=== PATIENT | female | born 1955 | race Caucasian/White ===

== ENCOUNTER 2017-09-16 19:58 | Inpatient (IN) | payer OTHER, MEDICARE ==
[~2017-09-16] VITALS: Ht 180.3 cm; Wt 109.9 kg
[2017-09-16] MEDS ORDERED: ipratropium 0.5 MG/2.5ML nebule IH ONE (20:15)
[2017-09-16] MEDS ORDERED: methylPREDNISolone sod succ 125mg/2ml vial IV ONE (20:15)
[2017-09-16] MEDS ORDERED: magnesium 2GM in 50ml NS 50 ML IV ONE (20:15)
[2017-09-16] MEDS ORDERED: albuterol 2.5 MG/3 ML nebule CONTNEB PRN (20:15)
[2017-09-16 20:57] LABS: BASOPHILS % (AUTO) 0.3 % (0-1); EOSINOPHILS # (AUTO) 0.2 X10'3 (0-0.9); EOSINOPHILS % (AUTO) 2.2 % (0-6); HEMATOCRIT 45.4 % (35.0-45.0); HEMOGLOBIN 15.8 g/dl (12.0-16.0); LYMPHOCYTES # (AUTO) 1.1 X10'3 (1.1-4.8); LYMPHOCYTES % (AUTO) 15.1 % (21-51); MEAN CORPUSCULAR HEMOGLOBIN 33.6 PG (27.0-31.0); MEAN CORPUSCULAR HGB CONC 34.8 % (33.0-36.5); MEAN CORPUSCULAR VOLUME 96.7 FL (78-98); MEAN PLATELET VOLUME 8.1 FL (7.4-10.4); MONOCYTES # (AUTO) 0.7 X10'3 (0-0.9); MONOCYTES % (AUTO) 9.9 % (2-12); NEUTROPHILS # (AUTO) 5.2 X10'3 (1.8-7.7); NEUTROPHILS % (AUTO) 72.5 % (42-75); PLATELET COUNT 158 X10'3 (140-440); RED BLOOD COUNT 4.69 X10'6 (4.20-5.60); RED CELL DISTRIBUTION WIDTH 14.4 % (11.5-14.5); WHITE BLOOD COUNT 7.2 X10'3 (4.5-11.0)
[2017-09-16 21:10] LABS: PARTIAL THROMBOPLASTIN TIME 26 SECONDS (22-32); PROTHROMBIN TIME 10.1 SECONDS (9.0-12.0)
[2017-09-16 21:12] LABS: ALANINE AMINOTRANSFERASE 20 U/L (12-78); ALBUMIN 3.8 G/DL (3.4-5.0); ALBUMIN/GLOBULIN RATIO 0.9 (1.1-1.5); ALKALINE PHOSPHATASE 56 IU/L (46-116); ANION GAP 9 (8-16); ASPARTATE AMINO TRANSFERASE 12 U/L (10-37); BILIRUBIN,TOTAL 0.5 MG/DL (0.1-1.0); BLOOD UREA NITROGEN 9 MG/DL (7-18); BUN/CREATININE RATIO 13.2 (6.6-38.0); CALCIUM 9.3 MG/DL (8.5-10.1); CHLORIDE 104 MMOL/L (99-107); CREATININE 0.68 MG/DL (0.40-0.90); GLUCOSE 120 MG/DL (70-104); POTASSIUM 3.8 MMOL/L (3.5-5.1); SODIUM 140 MMOL/L (135-145); TOTAL CARBON DIOXIDE 27.5 MMOL/L (24-32); TOTAL PROTEIN 8.2 G/DL (6.4-8.2); eGFR 87 ML/MIN
[2017-09-16] MEDS ORDERED: albuterol 2.5 MG/3 ML nebule NEB ONE (23:05)
[2017-09-17] MEDS ORDERED: mag hydrox/Alum hydrox/simeth 30ml oral suspension PO PRN (01:15)
[2017-09-17] MEDS ORDERED: ondansetron/PF 4mg/2ml inj IV PRN (01:15)
[2017-09-17] MEDS ORDERED: magnesium hydroxide 30ml (MOM) UD suspension PO PRN (01:15)
[2017-09-17] MEDS ORDERED: acetaminophen 325mg tablet PO PRN (01:15)
[2017-09-17] MEDS ORDERED: albuterol 2.5 MG/3 ML nebule NEB PRN (01:20)
[2017-09-17] MEDS ORDERED: HYDR-565 PO (01:36)
[2017-09-17] MEDS ORDERED: AMLO-94 PO (01:36)
[2017-09-17] MEDS ORDERED: GABA-532 PO ×2 (01:36)
[2017-09-17] MEDS ORDERED: TEMA30CA PO (07:05)
[2017-09-17] MEDS ORDERED: SERT100T PO (07:07)
[2017-09-17 07:45] VITALS: BP 140/77
[2017-09-17] MEDS ORDERED: methylPREDNISolone sod succ/PF 40mg inj. IV SCH (08:00)
[2017-09-17] MEDS: pantoprazole 40 MG vial IV SCH (08:21)
[2017-09-17] MEDS: HYDROcodone/acetaminophen 10/325mg tab PO PRN ×2 (08:23→20:29)
[2017-09-17] MEDS: heparin, porcine 5000 units/ml vial SQ SCH ×2 (08:23→20:21)
[2017-09-17] MEDS ORDERED: LORazepam 2 mg/ml vial IV PRN (10:40)
[2017-09-17] MEDS: LORazepam 1 MG tablet PO PRN ×2 (14:42→20:20)
[2017-09-17] MEDS: ipratropium/albuterol 3ml nebule NEB SCH ×3 (14:59→23:30)
[2017-09-17 19:00] VITALS: BP 155/66
[2017-09-17] MEDS: methylPREDNISolone sod succ/PF 40mg inj. IV SCH (20:22)
[2017-09-18] VITALS: BP 152/79
[2017-09-18] MEDS: methylPREDNISolone sod succ/PF 40mg inj. IV SCH ×4 (03:54→20:47)
[2017-09-18] MEDS: ipratropium/albuterol 3ml nebule NEB PRN (03:56)
[2017-09-18 05:11] LABS: BASOPHILS % (AUTO) 0.2 % (0-1); EOSINOPHILS % (AUTO) 0.5 % (0-6); HEMATOCRIT 45.5 % (35.0-45.0); HEMOGLOBIN 15.9 g/dl (12.0-16.0); LYMPHOCYTES # (AUTO) 0.8 X10'3 (1.1-4.8); LYMPHOCYTES % (AUTO) 9.6 % (21-51); MEAN CORPUSCULAR HEMOGLOBIN 33.7 PG (27.0-31.0); MEAN CORPUSCULAR HGB CONC 34.8 % (33.0-36.5); MEAN CORPUSCULAR VOLUME 96.7 FL (78-98); MEAN PLATELET VOLUME 8.3 FL (7.4-10.4); MONOCYTES # (AUTO) 0.4 X10'3 (0-0.9); MONOCYTES % (AUTO) 4.4 % (2-12); NEUTROPHILS # (AUTO) 7.3 X10'3 (1.8-7.7); NEUTROPHILS % (AUTO) 85.3 % (42-75); PLATELET COUNT 156 X10'3 (140-440); RED BLOOD COUNT 4.71 X10'6 (4.20-5.60); RED CELL DISTRIBUTION WIDTH 14.1 % (11.5-14.5); WHITE BLOOD COUNT 8.5 X10'3 (4.5-11.0)
[2017-09-18 05:27] LABS: ALANINE AMINOTRANSFERASE 21 U/L (12-78); ALBUMIN 3.7 G/DL (3.4-5.0); ALBUMIN/GLOBULIN RATIO 0.8 (1.1-1.5); ALKALINE PHOSPHATASE 54 IU/L (46-116); ANION GAP 10 (8-16); ASPARTATE AMINO TRANSFERASE 14 U/L (10-37); BILIRUBIN,TOTAL 0.4 MG/DL (0.1-1.0); BLOOD UREA NITROGEN 13 MG/DL (7-18); CALCIUM 9.1 MG/DL (8.5-10.1); CHLORIDE 104 MMOL/L (99-107); CREATININE 0.65 MG/DL (0.40-0.90); GLUCOSE 146 MG/DL (70-104); POTASSIUM 4.3 MMOL/L (3.5-5.1); SODIUM 143 MMOL/L (135-145); TOTAL CARBON DIOXIDE 28.9 MMOL/L (24-32); TOTAL PROTEIN 8.2 G/DL (6.4-8.2); eGFR > 90 ML/MIN
[2017-09-18 07:46] VITALS: BP 142/63
[2017-09-18] MEDS: HYDROcodone/acetaminophen 10/325mg tab PO PRN ×4 (08:12→21:38)
[2017-09-18] MEDS: LORazepam 1 MG tablet PO PRN ×3 (08:12→21:38)
[2017-09-18] MEDS: heparin, porcine 5000 units/ml vial SQ SCH ×2 (08:12→20:46)
[2017-09-18] MEDS: pantoprazole 40 MG vial IV SCH (08:13)
[2017-09-18] MEDS: ipratropium/albuterol 3ml nebule NEB SCH ×4 (08:23→20:19)
[2017-09-18 11:00] VITALS: BP 150/61
[2017-09-18 19:30] VITALS: BP 158/64
[2017-09-18] MEDS: cefTRIAXone 1g/NS 100ml IVPB 100 ML IV SCH (20:47)
[2017-09-18] MEDS: levoFLOXACIN-Levaquin 500mg/D5 100 ML IV SCH (21:38)
[2017-09-18 23:45] VITALS: BP 144/55
[2017-09-19] MEDS: ipratropium/albuterol 3ml nebule NEB SCH ×4 (00:10→21:01)
[2017-09-19] MEDS: methylPREDNISolone sod succ/PF 40mg inj. IV SCH ×3 (02:05→15:32)
[2017-09-19] MEDS: HYDROcodone/acetaminophen 10/325mg tab PO PRN ×5 (02:05→21:44)
[2017-09-19] MEDS: ipratropium/albuterol 3ml nebule NEB PRN (04:13)
[2017-09-19] MEDS: LORazepam 1 MG tablet PO PRN ×3 (04:28→19:04)
[2017-09-19 05:17] LABS: BASOPHILS % (AUTO) 0 % (0-1); EOSINOPHILS # (AUTO) 0.1 X10'3 (0-0.9); HEMATOCRIT 44.7 % (35.0-45.0); HEMOGLOBIN 15.7 g/dl (12.0-16.0); LYMPHOCYTES # (AUTO) 0.7 X10'3 (1.1-4.8); LYMPHOCYTES % (AUTO) 8.1 % (21-51); MEAN CORPUSCULAR VOLUME 97.1 FL (78-98); MEAN PLATELET VOLUME 8.2 FL (7.4-10.4); MONOCYTES # (AUTO) 0.4 X10'3 (0-0.9); MONOCYTES % (AUTO) 4.1 % (2-12); NEUTROPHILS % (AUTO) 86.8 % (42-75); PLATELET COUNT 172 X10'3 (140-440); RED CELL DISTRIBUTION WIDTH 14.6 % (11.5-14.5); WHITE BLOOD COUNT 9.2 X10'3 (4.5-11.0)
[2017-09-19 05:44] LABS: ALANINE AMINOTRANSFERASE 19 U/L (12-78); ALBUMIN 3.5 G/DL (3.4-5.0); ALBUMIN/GLOBULIN RATIO 0.8 (1.1-1.5); ALKALINE PHOSPHATASE 48 IU/L (46-116); ANION GAP 12 (8-16); ASPARTATE AMINO TRANSFERASE 15 U/L (10-37); BILIRUBIN,TOTAL 0.2 MG/DL (0.1-1.0); BLOOD UREA NITROGEN 16 MG/DL (7-18); BUN/CREATININE RATIO 26.2 (6.6-38.0); CALCIUM 9.1 MG/DL (8.5-10.1); CHLORIDE 104 MMOL/L (99-107); CREATININE 0.61 MG/DL (0.40-0.90); GLUCOSE 131 MG/DL (70-104); POTASSIUM 4.7 MMOL/L (3.5-5.1); SODIUM 142 MMOL/L (135-145); TOTAL CARBON DIOXIDE 26.4 MMOL/L (24-32); TOTAL PROTEIN 7.7 G/DL (6.4-8.2); eGFR > 90 ML/MIN
[2017-09-19 07:00] VITALS: BP 149/69
[2017-09-19] MEDS: pantoprazole 40 MG vial IV SCH (08:32)
[2017-09-19] MEDS: cefTRIAXone 1g/NS 100ml IVPB 100 ML IV SCH (08:32)
[2017-09-19] MEDS: heparin, porcine 5000 units/ml vial SQ SCH ×2 (08:33→19:04)
[2017-09-19] MEDS: levoFLOXACIN-Levaquin 500mg/D5 100 ML IV SCH (09:39)
[2017-09-19 11:28] VITALS: BP 149/61
[2017-09-19] MEDS: lactobacillus rhamnosus 10,000 MMU CELLS/CAPSULE PO SCH (19:04)
[2017-09-19] MEDS: predniSONE 20 mg tablet PO SCH (19:04)
[2017-09-19 20:00] VITALS: BP 129/49
[2017-09-20] MEDS: ipratropium/albuterol 3ml nebule NEB SCH ×6 (00:10→20:09)
[2017-09-20] MEDS: LORazepam 1 MG tablet PO PRN ×3 (01:26→17:30)
[2017-09-20 05:09] LABS: BASOPHILS % (AUTO) 0.2 % (0-1); EOSINOPHILS % (AUTO) 0 % (0-6); HEMATOCRIT 45.2 % (35.0-45.0); HEMOGLOBIN 15.6 g/dl (12.0-16.0); LYMPHOCYTES # (AUTO) 1.4 X10'3 (1.1-4.8); LYMPHOCYTES % (AUTO) 14.9 % (21-51); MEAN CORPUSCULAR HEMOGLOBIN 33.9 PG (27.0-31.0); MEAN CORPUSCULAR HGB CONC 34.6 % (33.0-36.5); MEAN CORPUSCULAR VOLUME 97.8 FL (78-98); MEAN PLATELET VOLUME 8.1 FL (7.4-10.4); MONOCYTES # (AUTO) 0.7 X10'3 (0-0.9); MONOCYTES % (AUTO) 7.1 % (2-12); NEUTROPHILS # (AUTO) 7.2 X10'3 (1.8-7.7); NEUTROPHILS % (AUTO) 77.8 % (42-75); PLATELET COUNT 179 X10'3 (140-440); RED BLOOD COUNT 4.62 X10'6 (4.20-5.60); RED CELL DISTRIBUTION WIDTH 14.4 % (11.5-14.5); WHITE BLOOD COUNT 9.2 X10'3 (4.5-11.0)
[2017-09-20 05:22] LABS: ALANINE AMINOTRANSFERASE 22 U/L (12-78); ALBUMIN 3.4 G/DL (3.4-5.0); ALBUMIN/GLOBULIN RATIO 0.9 (1.1-1.5); ALKALINE PHOSPHATASE 45 IU/L (46-116); ANION GAP 7 (8-16); ASPARTATE AMINO TRANSFERASE 18 U/L (10-37); BILIRUBIN,TOTAL 0.3 MG/DL (0.1-1.0); BLOOD UREA NITROGEN 13 MG/DL (7-18); BUN/CREATININE RATIO 20.3 (6.6-38.0); CALCIUM 9.1 MG/DL (8.5-10.1); CHLORIDE 105 MMOL/L (99-107); CREATININE 0.64 MG/DL (0.40-0.90); GLUCOSE 114 MG/DL (70-104); SODIUM 143 MMOL/L (135-145); TOTAL CARBON DIOXIDE 31.4 MMOL/L (24-32); TOTAL PROTEIN 7.4 G/DL (6.4-8.2); eGFR > 90 ML/MIN
[2017-09-20 05:24] LABS: POTASSIUM 4.4 MMOL/L (3.5-5.1)
[2017-09-20 07:00] VITALS: BP 171/96
[2017-09-20] MEDS: pantoprazole 40mg Tablet.DR PO SCH (08:00)
[2017-09-20] MEDS: predniSONE 20 mg tablet PO SCH (08:00)
[2017-09-20] MEDS: heparin, porcine 5000 units/ml vial SQ SCH ×2 (08:00→21:02)
[2017-09-20] MEDS: lactobacillus rhamnosus 10,000 MMU CELLS/CAPSULE PO SCH ×2 (08:00→21:02)
[2017-09-20] MEDS: HYDROcodone/acetaminophen 10/325mg tab PO PRN ×4 (08:01→22:18)
[2017-09-20] MEDS: levoFLOXACIN-Levaquin 500mg/D5 100 ML IV SCH (08:02)
[2017-09-20] MEDS ORDERED: lisinopril 20mg tablet PO SCH (08:55)
[2017-09-20] MEDS: cefTRIAXone 1g/NS 100ml IVPB 100 ML IV SCH (09:11)
[2017-09-20] MEDS: amLODIPine 5mg tablet PO SCH (09:11)
[2017-09-20 11:00] VITALS: BP 166/87
[2017-09-20 17:49] VITALS: BP 132/75
[2017-09-20 20:00] VITALS: BP 154/72
[2017-09-21] VITALS: BP 136/76
[2017-09-21 05:55] LABS: BASOPHILS % (AUTO) 0.3 % (0-1); EOSINOPHILS % (AUTO) 0.3 % (0-6); HEMATOCRIT 43.5 % (35.0-45.0); HEMOGLOBIN 15.2 g/dl (12.0-16.0); LYMPHOCYTES # (AUTO) 2.9 X10'3 (1.1-4.8); LYMPHOCYTES % (AUTO) 37.9 % (21-51); MEAN CORPUSCULAR HEMOGLOBIN 33.9 PG (27.0-31.0); MEAN CORPUSCULAR HGB CONC 34.9 % (33.0-36.5); MEAN CORPUSCULAR VOLUME 97.1 FL (78-98); MONOCYTES # (AUTO) 0.8 X10'3 (0-0.9); MONOCYTES % (AUTO) 9.9 % (2-12); NEUTROPHILS % (AUTO) 51.6 % (42-75); PLATELET COUNT 167 X10'3 (140-440); RED BLOOD COUNT 4.48 X10'6 (4.20-5.60); RED CELL DISTRIBUTION WIDTH 14.2 % (11.5-14.5); WHITE BLOOD COUNT 7.7 X10'3 (4.5-11.0)
[2017-09-21 06:17] LABS: ALANINE AMINOTRANSFERASE 32 U/L (12-78); ALBUMIN 3.3 G/DL (3.4-5.0); ALBUMIN/GLOBULIN RATIO 0.9 (1.1-1.5); ALKALINE PHOSPHATASE 41 IU/L (46-116); ANION GAP 4 (8-16); ASPARTATE AMINO TRANSFERASE 18 U/L (10-37); BILIRUBIN,TOTAL 0.4 MG/DL (0.1-1.0); BLOOD UREA NITROGEN 21 MG/DL (7-18); BUN/CREATININE RATIO 26.9 (6.6-38.0); CALCIUM 8.4 MG/DL (8.5-10.1); CHLORIDE 103 MMOL/L (99-107); CREATININE 0.78 MG/DL (0.40-0.90); GLUCOSE 87 MG/DL (70-104); POTASSIUM 3.2 MMOL/L (3.5-5.1); SODIUM 137 MMOL/L (135-145); TOTAL CARBON DIOXIDE 30.5 MMOL/L (24-32); TOTAL PROTEIN 6.8 G/DL (6.4-8.2); eGFR 74 ML/MIN
[2017-09-21] MEDS: HYDROcodone/acetaminophen 10/325mg tab PO PRN ×2 (06:46→14:52)
[2017-09-21] MEDS: ipratropium/albuterol 3ml nebule NEB SCH ×2 (06:59→10:33)
[2017-09-21 07:39] VITALS: BP 142/78
[2017-09-21] MEDS: cefTRIAXone 1g/NS 100ml IVPB 100 ML IV SCH (08:00)
[2017-09-21] MEDS: heparin, porcine 5000 units/ml vial SQ SCH (08:27)
[2017-09-21] MEDS: levoFLOXACIN-Levaquin 500mg/D5 100 ML IV SCH (08:27)
[2017-09-21] MEDS: pantoprazole 40mg Tablet.DR PO SCH (08:27)
[2017-09-21] MEDS: lactobacillus rhamnosus 10,000 MMU CELLS/CAPSULE PO SCH (08:27)
[2017-09-21] MEDS: amLODIPine 5mg tablet PO SCH (08:27)
[2017-09-21] MEDS: LORazepam 1 MG tablet PO PRN (08:27)
[2017-09-21] MEDS: predniSONE 20 mg tablet PO SCH (08:27)
[2017-09-21] MEDS ORDERED: IPRA3AMP9 NEB (09:56)
[2017-09-21] MEDS ORDERED: PRED20TA PO (09:56)
[2017-09-21] MEDS ORDERED: LEVO750T21 PO (09:56)
[2017-09-21] MEDS ORDERED: potassium Cl 20 mEq SR tablet PO STA (09:57)
[2017-09-21 11:00] VITALS: BP 144/69
== END 2017-09-21 15:33 | disposition home or self-care (01) | DRG 189 ==
LOC: ER 19:59 → ED HOLD 09-17 01:13 → SUR 3N 09-17 08:10
PROVIDERS: ADMIT Internal Medicine; ATTEND Family Medicine
DX: J96.21 Acute and chronic respiratory failure with hypoxia (principal); J44.0 Chronic obstructive pulmonary disease with (acute) lower respiratory infection; J44.1 Chronic obstructive pulmonary disease with (acute) exacerbation; E87.6 Hypokalemia; F41.1 Generalized anxiety disorder; F43.10 Post-traumatic stress disorder, unspecified; J20.9 Acute bronchitis, unspecified; K21.0 Gastro-esophageal reflux disease with esophagitis; F17.200 Nicotine dependence, unspecified, uncomplicated; M19.041 Primary osteoarthritis, right hand; M19.042 Primary osteoarthritis, left hand; Z79.899 Other long term (current) drug therapy; Z88.8 Allergy status to other drugs, medicaments and biological substances
CPT/HCPCS: 36415; 70490; 71045; 80053; 83880; 84484; 85025; 85610; 85730; 87070; 87502; 87503; 93005; 94640; 94668; 94760; 96365; 96375; 99285; C9113; J0696; J1644; J1956; J2060; J2920; J2930; J3475; J7030; J7512

== ENCOUNTER 2021-12-13 11:44 | Emergency (ER) | payer OTHER, MEDICARE ==
[~2021-12-13] VITALS: Ht 180.3 cm; Wt 109.1 kg
[~2021-12-13 11:44] MED LIST: AMLO-139 PO; GABA-532 PO; HYDR-4353 PO; IPRA3AMP9 NEB; ONDA4TAB6 PO; PRED20TA PO; SERT100T PO; TEMA30CA PO
[2021-12-13 12:20] LABS: BASOPHILS # (AUTO) 0.1 X10'3 (0-0.2); BASOPHILS % (AUTO) 0.9 % (0-1); EOSINOPHILS # (AUTO) 0.1 X10'3 (0-0.9); EOSINOPHILS % (AUTO) 1.8 % (0-6); HEMATOCRIT 46.3 % (35.0-45.0); HEMOGLOBIN 16.1 g/dl (12.0-16.0); LYMPHOCYTES # (AUTO) 1.6 X10'3 (1.1-4.8); LYMPHOCYTES % (AUTO) 26.5 % (21-51); MEAN CORPUSCULAR HEMOGLOBIN 35.6 PG (27.0-31.0); MEAN CORPUSCULAR HGB CONC 34.9 g/dL (33.0-36.5); MEAN CORPUSCULAR VOLUME 102.1 FL (78-98); MEAN PLATELET VOLUME 8.4 FL (7.4-10.4); MONOCYTES # (AUTO) 0.6 X10'3 (0-0.9); MONOCYTES % (AUTO) 9.2 % (2-12); NEUTROPHILS # (AUTO) 3.7 X10'3 (1.8-7.7); NEUTROPHILS % (AUTO) 61.6 % (42-75); PLATELET COUNT 177 X10'3 (140-440); RED BLOOD COUNT 4.53 X10'6 (4.20-5.60); RED CELL DISTRIBUTION WIDTH 14.8 % (11.5-14.5); WHITE BLOOD COUNT 6.1 X10'3 (4.5-11.0)
[2021-12-13 12:40] LABS: ALANINE AMINOTRANSFERASE 13 U/L (12-78); ALBUMIN/GLOBULIN RATIO 1.1 (1.1-1.5); ALKALINE PHOSPHATASE 55 IU/L (46-116); ANION GAP 10 (8-16); ASPARTATE AMINO TRANSFERASE 12 U/L (10-37); BILIRUBIN,TOTAL 0.6 MG/DL (0.1-1.0); BLOOD UREA NITROGEN 9 MG/DL (7-18); BUN/CREATININE RATIO 13.8 (6.6-38.0); CALCIUM 8.9 MG/DL (8.5-10.1); CHLORIDE 106 MMOL/L (99-107); CREATININE 0.65 MG/DL (0.40-0.90); GLUCOSE 125 MG/DL (70-104); LIPASE < 50 U/L (73-393); POTASSIUM 3.7 MMOL/L (3.5-5.1); SODIUM 141 MMOL/L (135-145); TOTAL CARBON DIOXIDE 25.1 MMOL/L (24-32); TOTAL PROTEIN 7.5 G/DL (6.4-8.2); eGFR > 90 ML/MIN
[2021-12-13 12:54] LABS: CLARITY,URINE CLEAR (Clear); COLOR,URINE YELLOW (Yellow); GLUCOSE, URINE NEGATIVE (Neg); KETONES,URINE NEGATIVE (Neg); LEUKOCYTE ESTERASE ,URINE NEGATIVE (Neg); NITRITES, URINE NEGATIVE (Neg); OCCULT BLOOD,URINE SMALL (Neg); PROTEIN,URINE NEGATIVE (Neg); UROBILINOGEN,URINE 0.2 E.U/dL (0.2-1.0)
[2021-12-13 13:00] LABS: UA COLLECTION TYPE NON-SPECIFIED
[2021-12-13 13:21] LABS: BACTERIA,URINE FEW /HPF (Neg); SQUAMOUS EPITHELIAL CELL,UR MODERATE /LPF (FEW)
[2021-12-13 13:22] LABS: WBC,URINE 0-4 /HPF (0-4)
[2021-12-13 13:23] LABS: MUCUS STRANDS FEW /LPF (Neg)
[2021-12-13 15:13] VITALS: BP 154/96
== END 2021-12-13 15:15 | disposition home or self-care (01) ==
LOC: ER 11:44
DX: K59.00 Constipation, unspecified (principal); G89.29 Other chronic pain; Z88.8 Allergy status to other drugs, medicaments and biological substances; Z79.899 Other long term (current) drug therapy
CPT/HCPCS: 36415; 74018; 80053; 81001; 83690; 85025; 99284

== ENCOUNTER 2022-11-26 10:45 | Emergency (ER) | payer OTHER, MEDICARE ==
[~2022-11-26] VITALS: Ht 180.3 cm; Wt 104.5 kg
[2022-11-26] MEDS ORDERED: normal saline 1000ML IV soln IVB ONE (11:50)
[2022-11-26] MEDS ORDERED: ondansetron/PF 4mg/2ml inj IV ONE ×2 (11:50→13:30)
[2022-11-26] MEDS ORDERED: HYDROmorphone 1 mg/ml syringe IV ONE (11:50)
[2022-11-26 12:22] LABS: BASOPHILS # (AUTO) 0.1 X10'3 (0-0.2); EOSINOPHILS % (AUTO) 0.8 % (0-6); HEMATOCRIT 41.5 % (35.0-45.0); HEMOGLOBIN 14.6 g/dl (12.0-16.0); LYMPHOCYTES % (AUTO) 18.7 % (21-51); MEAN CORPUSCULAR HEMOGLOBIN 35.9 PG (27.0-31.0); MEAN CORPUSCULAR HGB CONC 35.2 g/dL (33.0-36.5); MEAN CORPUSCULAR VOLUME 101.8 FL (78-98); MEAN PLATELET VOLUME 7.3 FL (7.4-10.4); MONOCYTES # (AUTO) 0.4 X10'3 (0-0.9); MONOCYTES % (AUTO) 8.4 % (2-12); NEUTROPHILS # (AUTO) 3.7 X10'3 (1.8-7.7); NEUTROPHILS % (AUTO) 71.1 % (42-75); PLATELET COUNT 198 X10'3 (140-440); RED BLOOD COUNT 4.08 X10'6 (4.20-5.60); RED CELL DISTRIBUTION WIDTH 14.8 % (11.5-14.5); WHITE BLOOD COUNT 5.2 X10'3 (4.5-11.0)
[2022-11-26] MEDS ORDERED: albuterol 2.5 MG/3 ML nebule NEB ONE (12:30)
[2022-11-26] MEDS ORDERED: methylPREDNISolone sod succ 125mg/2ml vial IV ONE (12:30)
[2022-11-26 12:36] LABS: ALANINE AMINOTRANSFERASE 9 U/L (12-78); ALBUMIN 3.6 G/DL (3.4-5.0); ALBUMIN/GLOBULIN RATIO 0.9 (1.1-1.5); ALKALINE PHOSPHATASE 73 IU/L (46-116); ANION GAP 6 (8-16); ASPARTATE AMINO TRANSFERASE 22 U/L (10-37); BILIRUBIN,TOTAL 0.7 MG/DL (0.1-1.0); BLOOD UREA NITROGEN 7 MG/DL (7-18); BUN/CREATININE RATIO 10.8 (10.0-20.0); CALCIUM 8.9 MG/DL (8.5-10.1); CHLORIDE 105 MMOL/L (99-107); CREATININE 0.65 MG/DL (0.40-0.90); GLUCOSE 99 MG/DL (70-104); POTASSIUM 3.5 MMOL/L (3.5-5.1); SODIUM 141 MMOL/L (135-145); TOTAL CARBON DIOXIDE 29.9 MMOL/L (24-32); TOTAL PROTEIN 7.7 G/DL (6.4-8.2); eGFR 90 ML/MIN
[2022-11-26] MEDS ORDERED: iohexol 350MG/ML 100ml bottle IV ONE (13:01)
[2022-11-26] MEDS ORDERED: LORazepam 2 mg/ml vial IV ONE (13:25)
[2022-11-26] MEDS ORDERED: ondansetron/PF 4mg/2ml inj ONE (13:32)
[2022-11-26 16:17] VITALS: BP 150/77
== END 2022-11-26 16:56 | disposition home or self-care (01) ==
LOC: ER 10:45
DX: R91.8 Other nonspecific abnormal finding of lung field (principal); G89.29 Other chronic pain; M54.9 Dorsalgia, unspecified; Z88.8 Allergy status to other drugs, medicaments and biological substances; Z79.899 Other long term (current) drug therapy; Z79.1 Long term (current) use of non-steroidal anti-inflammatories (NSAID); Z79.2 Long term (current) use of antibiotics
CPT/HCPCS: 36415; 71045; 71275; 72131; 72148; 80053; 84484; 85025; 94640; 96361; 96374; 96375; 96376; 99285; J1170; J2060; J2405; J2930; J7030; Q9967